=== PATIENT | male | born 2000 | race Caucasian/White ===

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

== ENCOUNTER 2018-01-11 08:54 | Day surgery (SDC) | payer OTHER ==
[~2018-01-11] VITALS: Ht 182.9 cm; Wt 88.5 kg
[~2018-01-11 08:54] MED LIST changes: +ULTRAM50 MG PO
--- NOTE | 2018-01-11 13:19 | NUR ---
01/11/18 1319 Shilo Ricks 1303 PT ARRIVED TO PACU, ASLEEP. PT BREATHING ON OWN. NO SIGNS OF DISTRESS. AWAKENS TO VOICE AND TOUCH. VITAL STABLE. WILL MOITOR. 1310 PT AWAKENS TO VOICE AND TOUCH. GIVES "THUMBS UP". FALL BACK TO SLEEP QUICKLY. 1319 O2 DECREASED TO 4 L VIA MASK.
[2018-01-11] MEDS ORDERED: OXYCODON-ACETA1 EAC2 PO (13:22)
[2018-01-11] MEDS ORDERED: IBUPROFEN600 MG PO (13:22)
[2018-01-11] MEDS ORDERED: TYLENOL325 MG PO (13:22)
--- NOTE | 2018-01-11 14:05 | NUR ---
PATIENT ARRIVED TO ROOM 115 VIA STRETCHER AT 1400. PATIENT RATES PAIN 2/10 IN ABDOMEN. MULTIPLE FAMILY MEMBERS PRESENT. PATIENT AWARE OF GOALS BEFORE DISCHARGE. ABLE TO GO HOME WHEN READY.
--- NOTE | 2018-01-11 14:48 | NUR ---
PATIENT SITTING UP IN BED. FAMILY MEMBERS IN ROOM. CALL LIGHT WITHIN REACH. NO OTHER NEEDS AT THIS TIME.
--- NOTE | 2018-01-11 15:32 | NUR ---
PT PAIN WELL CONTROLLED. TOLERATED REGULAR DIET WELL. DUE TO VOID. ADJUSTED IV TO ALLOW FLOW OF IVF.
--- NOTE | 2018-01-11 16:08 | NUR ---
PATIENT VOIDED 500ML
--- NOTE | 2018-01-11 16:11 | NUR ---
pt urinated 500ml. dressed in street clothes and provided band aids. pharmacist providing further education on medications.
--- NOTE | 2018-01-14 12:56 | OR ---
[facility] [address], [place] [address] Signed DATE OF OPERATION: 01/11/2018 SURGEON: Lorni Cope MD PREOPERATIVE DIAGNOSIS: Acute appendicitis. POSTOPERATIVE DIAGNOSIS: Acute suppurative appendicitis without perforation. PROCEDURE: Laparoscopic appendectomy. ANESTHESIA: General endotracheal (Raphael Gutierrez CRNA) and local 20 mL of 0.25% Marcaine with epinephrine. INDICATION: This 18-year-old white man began having right lower abdominal pain yesterday, which was crampy in nature. It progressed and did not improve. He had some nausea but no vomiting. He has had no fever or chills. He presented to the emergency room where he was found by Dr. Negro, emergency room physician to have clinical findings suggestive of appendicitis. A CT scan was performed confirming that diagnosis. He was admitted to undergo appendectomy preferred by laparoscopic approach at this time. He understands well the risks of bleeding, infection, need for open procedure, failure of diagnosis, missed diagnosis, and other unforeseen complications and wished to proceed. 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 These plans will have to be modified obviously. FINDINGS: Indeed the appendix was quite inflamed. There was a mucopurulent discharge, but no sign of perforation or well-formed abscess. The remaining abdomen was normal including the gallbladder and liver, colon and ileum. DESCRIPTION OF PROCEDURE: The patient was brought to the operating room, given a general endotracheal anesthetic. Preoperative antibiotics, Levaquin and Flagyl had been given by the emergency room physician. Pepcid had been given as well. Sequential compression device stockings were used. After satisfactory general endotracheal anesthesia, a Burgess catheter was placed Electronically Signed By: LORIN COPE MD 01/14/18 1256 PATIENT NAME: EMILY RUSH OPERATIVE REPORT DATE OF : [birth year] REPORT #: [id number] PHYSICIAN: LORIN COPE MD PCP: NO PRIMARY CARE PHYSICIAN REPORT IS CONFIDENTIAL AND NOT TO BE RELEASED WITHOUT AUTHORIZATION [facility] [address], [place] [address] Signed and the abdomen was clipped and prepared with a chlorhexidine solution and draped sterilely. An infraumbilical incision was made and using an open Marni cannula technique, pneumoperitoneum was achieved to a level of 14 mmHg with carbon dioxide gas. Intra-abdominal inspection showed some inflammatory fluid in the right pericolic gutter and in the region of the right parahepatic space. The appendix itself was not visualized at that point. A 12 mm epigastric port was placed under direct visualization. The camera removed to that site. With single-hand manipulation through the infraumbilical port site, the cecum was delivered and the appendix appeared to be quite inflamed, but not perforated, but with a mucopurulent discharge. A 5 mm suprapubic port was placed under direct visualization and allowed for two-hand manipulation. The appendix was elevated and a window created between the appendix and the mesoappendix and cecum. Through this window, an Endo JUSTO stapler device was used to transect the appendix flushed with the cecum. The staple line was hemostatic. This allowed for elevation of the appendix and application of a single endoscopic stapling device to the mesoappendix. Transection of the mesoappendix showed only minimal bleeding along the staple line which was secured with electrocautery. The appendix was placed in an endobag and extracted through the infraumbilical port site without problem and passed for permanent pathology. Irrigation was undertaken to the right lower quadrant including the staple line area, which was at this point found to be completely hemostatic. Excess irrigation fluid was suctioned free including some fluid in the pelvis and right pericolic gutter. The suprapubic and epigastric ports were removed under direct visualization and ultimately the Marni cannula removed. Attention was then turned towards closure of the abdomen. The infraumbilical fascial incision was reapproximated with interrupted 0 Vicryl suture. All wounds were copiously irrigated with saline solution. Skin closed with interrupted 3-0 Vicryl. Steri-Strips were applied. The patient ultimately was extubated and transported to recovery room in good condition having suffered no complication. Sponge, needle, and instrument counts reported as correct x3. Lorin Cope MD Electronically Signed By: LORIN COPE MD 01/14/18 1256 PATIENT NAME: EMILY RUSH OPERATIVE REPORT DATE OF : [birth year] REPORT #: [id number] PHYSICIAN: LORIN COPE MD PCP: NO PRIMARY CARE PHYSICIAN REPORT IS CONFIDENTIAL AND NOT TO BE RELEASED WITHOUT AUTHORIZATION [facility] [address] [place] [id number] Signed /MEENA /[id number] cc: Bishnu Negro Copies: BISHNU NEGRO ~ Electronically Signed By: LORIN COPE MD 01/14/18 1256 PATIENT NAME: EMILY RUSH OPERATIVE REPORT DATE OF : [birth year] REPORT #: [id number] PHYSICIAN: LORIN COPE MD PCP: NO PRIMARY CARE PHYSICIAN REPORT IS CONFIDENTIAL AND NOT TO BE RELEASED WITHOUT AUTHORIZATION
--- NOTE | 2018-01-14 12:56 | HP ---
[facility] [facility] [address], [place] [address] Signed ADMISSION DATE: 01/11/2018 REASON FOR ADMISSION: Acute appendicitis. HISTORY: This 18-year-old white man presented to the emergency room, where he was thoroughly evaluated by Dr. Pandya for right lower abdominal pain. His pain began as a crampy type pain yesterday. He thought it would resolve over time, it did not. He has worsened. He has had no nausea or vomiting, but persistent pain in the right lower abdomen. Evaluation by Dr. Pandya was highly suggestive of appendicitis by clinical examination. A CT scan was obtained, which confirmed that finding. A punctate appendicolith was noted as well as periappendiceal fluid. The appendix was noted to be low within the pelvis to the right of the midline tip at the level of the hip joint. There is no free fluid or air seen based on the report I have reviewed. I have reviewed the CT scan itself also. He is admitted for further evaluation and care. PAST MEDICAL HISTORY: Quite unremarkable. He takes no medications chronically. He has had arthroscopy with pinning of the knee in November of 2015. He is accompanied by his grandparents and his father, who is not present at this moment. 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 REVIEW OF SYSTEMS: He denies any shortness of breath or chest pain. He has had no dysphagia or dysuria. Denies any hematemesis or blood per rectum. He last ate yesterday. He had a small sip of water earlier today. PHYSICAL EXAMINATION: GENERAL: A tall and muscular white man, who looks to be in good health overall. He does not look systemically toxic. HEENT: Trachea is midline. CHEST: Shows normal respiratory excursion without tachypnea. Pulses regular. ABDOMEN: Flat, scaphoid, and easily palpated. Positive Rovsing sign is noted. There is tenderness to McBurney's point. Electronically Signed By: LORIN COPE MD 01/14/18 1256 PATIENT NAME: EMILY RUSH HISTORY AND PHYSICAL DATE OF : [birth year] REPORT #: [id number] PHYSICIAN: LORIN COPE MD PCP: NO PRIMARY CARE PHYSICIAN REPORT IS CONFIDENTIAL AND NOT TO BE RELEASED WITHOUT AUTHORIZATION [facility] [address] [place], [place] [address] Signed EXTREMITIES: Show no clubbing, cyanosis, or edema. LABORATORY DATA: Show a white count of 13.9, hematocrit 44.5, and platelets of 264,000. Chem profile normal, except for bilirubin elevated at 3.1, alkaline phosphatase low at 22, glucose is 104. Urinalysis has not yet received. Protime is normal and INR is 0.9. His clinical history and physical exam and confirmatory CT scan show acute appendicitis unlikely with perforation. I have discussed the pathophysiology of the problem with the patient and his grandparents are present, and the recommendation of treatment to include appendectomy. A laparoscopic approach would be preferred if possible. An open procedure may be necessary. I would not recommend non-operative approach to this particular problem and we discussed the benefits and risks of that approach as well. He agrees. PLAN: We will initiate antibiotic therapy, anticipating operation until the next hour or so. As regard to his return to the plan for basic training, likely this will have to be deferred. Restriction of lifting of 20 pounds or more for 2 weeks is my usual recommendation in that regard. MD KACEY Godinez/LANDENL /[id number] cc: Dr. Pandya Copies: ~ Electronically Signed By: LORIN COPE MD 01/14/18 1256 PATIENT NAME: EMILY RUSH HISTORY AND PHYSICAL DATE OF : [birth year] REPORT #: [id number] PHYSICIAN: LORIN COPE MD PCP: NO PRIMARY CARE PHYSICIAN REPORT IS CONFIDENTIAL AND NOT TO BE RELEASED WITHOUT AUTHORIZATION
== END 2018-01-11 16:20 | disposition home or self-care (01) ==
LOC: ED 08:54 → DS 11:04 → ED 11:04 → MS 11:04 → DS 16:20
PROVIDERS: Surgery
PROC: 0DTJ4ZZ Resection of Appendix, Percutaneous Endoscopic Approach (ICD-10-PCS; principal; 2018-01-11 12:16)
DX: K35.3 Acute appendicitis with localized peritonitis (principal); K56.41 Fecal impaction; J45.909 Unspecified asthma, uncomplicated; Z88.0 Allergy status to penicillin
CPT/HCPCS: 00840; 74177; 80053; 83690; 85025; 85610; 96361; 96374; 96375; 99285; J1885; J1956; J2270; J2405; J2704; J2765; J3010; J7030; J7120; Q9967